=== PATIENT | male | born 1990 | race Caucasian/White ===

== ENCOUNTER 2016-11-04 09:53 | Emergency (ER) | payer OTHER ==
[2016-11-04 10:56] LABS: MEAN CORPUSCULAR HEMOGLOBIN 30.2 pg (27.0-33.0); MEAN CORPUSCULAR HGB CONC 35.3 g/dl (32.0-36.5); MEAN CORPUSCULAR VOLUME 85.4 fl (80.0-96.0); RED CELL DISTRIBUTION WIDTH 11.5 % (11.5-14.5); WHITE BLOOD COUNT 6.4 K/mm3 (4.0-10.0)
[2016-11-04 11:09] LABS: AMPHETAMINES LEVEL URINE NEGATIVE (NEGATIVE); BENZODIAZEPINES URINE NEGATIVE (NEGATIVE)
[2016-11-04 11:10] LABS: COCAINE METABOLITE URINE NEGATIVE (NEGATIVE); CONTROL LINE INT CTR LINE PRESENT; METHADONE URINE NEGATIVE (NEGATIVE); OPIATES URINE NEGATIVE (NEGATIVE); TRICYCLIC ANTIDEPRESS URINE NEGATIVE (NEGATIVE)
[2016-11-04 11:41] LABS: ALBUMIN 4.2 GM/DL (3.2-5.2); ALBUMIN/GLOBULIN RATIO 1.14 (1.00-1.93); ALKALINE PHOSPHATASE 88 U/L (45-117); ALT/SGPT 47 U/L (12-78); ANION GAP 13 MEQ/L (8-16); AST/SGOT 27 U/L (15-37); BILIRUBIN,DIRECT < 0.1 MG/DL (0.0-0.2); BILIRUBIN,TOTAL 0.4 MG/DL (0.2-1.0); BLOOD UREA NITROGEN 12 MG/DL (7-18); CARBON DIOXIDE LEVEL 26 MEQ/L (21-32); CHLORIDE LEVEL 103 MEQ/L (98-107); CREATININE FOR GFR 0.92 MG/DL (0.70-1.30); GLOMERULAR FILTRATION RATE > 60.0 (>60); GLUCOSE, FASTING 85 MG/DL (70-105); POTASSIUM SERUM 3.6 MEQ/L (3.5-5.1); SODIUM LEVEL 142 MEQ/L (136-145); TOTAL PROTEIN 7.9 GM/DL (6.4-8.2)
--- NOTE | 2016-11-04 13:25 | EDDOCDS ---
Nurse's Notes [facility] Name: Lake Nguyen Age: 26 yrs Sex: Male : 1990 Arrival Date: 11/04/2016 Time: 09:53 Bed [facility] Private MD: Diagnosis: Major depressive disorder, recurrent, mild Presentation: 11/04 10:41 Presenting complaint: EMS states: ambulance arrival of pt who has been hallucinating mk4 per staff and states he is not safe. Mental Health Triage Level: Level 2: The patient displays active suicidal ideations. Adult Sepsis Screening: The patient does not have new or worsening altered mentation. Patient's respiratory rate is less than 22. Systolic blood pressure is greater than 100. Patient has a qSOFA score of 0- Negative Sepsis Screen. Suicide/Homicide risk assessment- The patient admits to and/or has been reported to be having suicidal ideations. 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 Transition of care: patient was not received from another setting of care. 10:41 Acuity: LICHA Level 3 mk4 10:41 Method Of Arrival: Ambulance mk4 Triage Assessment: 10:06 General: Appears in no apparent distress, Behavior is anxious. Pain: Denies pain. HIV mk4 screening NA for this visit Offered previously. Historical: - Allergies: BACITRACIN; SULFA (SULFONAMIDES); - Home Meds: 1. Adderall XR 30 mg oral cp24 1 cap once daily (Last dose: 11/03/2016 08:00) 2. Advair Diskus 100-50 mcg/dose Inhl dsdv 1 puff 2 times per day (Last dose: 11/03/2016 08:00) 3. Lexapro 10 mg Oral tab once daily (Last dose: 11/03/2016 08:00) 4. Vitamin D Oral 50,000 unit weekly (Last dose: 10/30/2016) 5. albuterol sulfate 90 mcg/actuation Inhl aepb as needed - PMHx: Anxiety; Asthma; - PSHx: none; - Social history: Smoking status: Patient states was never smoker of tobacco. No barriers to communication noted, The patient speaks fluent Palauan. - Family history: Not pertinent. - : The pt / caregiver states he / she is not on anticoagulants. Home medication list is obtained from the patient. - Exposure Risk Screening:: None identified. Screenin:54 Screening information is obtained from the patient. Fall risk: No risks identified. mk4 Assistance ADL's: requires no assistance with activities of daily living. Abuse/DV Screen: The patient / caregiver reports he/she is: not in a situation that causes fear, pain or injury. Nutritional screening: No deficits noted. Advance Directives: Currently, there is no health care proxy. There is no active DNR order. There is no living will. There is no Power of Mail Clerk. Advance directive information has not previously been placed in an [facility] medical record. Further advance directive information is declined. home support is adequate. Assessment: 10:00 General: Appears in no apparent distress, Behavior is anxious, wringing hands during mk4 triage. Neurological: Level of Consciousness is awake, alert. Respiratory: Airway is patent Respiratory effort is even, Respiratory pattern is regular. 11:00 Reassessment: Patient appears in no apparent distress at this time. Patient denies pain mk4 at this time. pt states he was not hallucinationg this am rather developed double vision while driving which kicked up his anxiety level, denies auditory halluc as well states just his " inner thought" denies s/i and h/i at this time. 12:06 General: Appears in no apparent distress, comfortable, Behavior is cooperative. mk4 12:06 General: Appears in no apparent distress, comfortable. Neurological: Level of mk4 Consciousness is awake, alert. 12:43 General: Appears in no apparent distress, comfortable, Behavior is cooperative, mk4 awaiting dispo. 13:21 General: Appears in no apparent distress, comfortable, Behavior is anxious, mk4 cooperative. Respiratory: Airway is patent Respiratory effort is even, unlabored, Respiratory pattern is regular. Mental Health Eval: 12:44 Mental health consult is initiated at 12:00. 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 [facility] Behavioral Health: The patient is not an established patient of [facility] Behavioral [facility]. Referral Information: Evaluation referral is generated by EMS from [facility] . The patient was referred for evaluation because pt was driving to work and experienced some blurred vision which triggered anxiety. Pt pulled his vehicle over to the side of the road to calm himself down, and reported VH(black objects moving), along with questionable AH. Pt denies SI and HI, denies command AH upon arrival.... Vital Signs: 10:06 BP 132 / 88; Pulse 88; Resp 18; Temp 98; Pulse Ox 98% on R/A; Weight 70.31 kg; Height 5 mk4 ft. 4 in. (162.56 cm); 10:06 Body Mass Index 26.61 (70.31 kg, 162.56 cm) mk4 Vitals: 10:06 Log In Time N/A - ambulance arrival. 4 ED Course: 09:53 Patient visited by Katelyn Yang. mm15 09:53 Patient moved to Waiting mm15 09:55 Lesley Nazario,RN is Primary Nurse. jlf 09:55 Patient moved to [facility] jlf 10:16 Desi Smith MD is Attending Physician. sd1 10:26 Patient visited by Desi Smith MD. sd1 10:42 Triage Initiated mk4 10:48 Patient visited by Amalia Wallace PCA. jlf 10:48 Acetaminophen Level Sent. jlf 10:48 Basic Metabolic Profile Sent. jlf 10:48 Complete Blood Count Sent. jlf 10:48 Drug Eval Toxicology ED Only Sent. jlf 10:48 Ethyl Alcohol (ethanol) Sent. jlf 10:48 Liver Profile Sent. jlf 10:48 Salicylate Level Sent. jlf 10:48 Thyroid Stimulating Hormone Sent. jlf 10:54 The patient / caregiver is instructed regarding the plan of care and ED course. mk4 10:59 Patient visited by Evert Dennis Security Aide. pjf 11:16 Patient visited by Dk Limon. gr2 11:40 Patient visited by Dk Limon. gr2 11:56 Patient visited by Dk Limon. gr2 11:59 [facility] Payment Agreement was scanned into [employer] and attached to record. pm4 12:06 No IV's were initiated during this patient's visit. No procedures done that require [facility] assistance. 12:12 Patient visited by Dk Limon. gr2 12:39 Patient visited by Dk Limon. gr2 12:47 Primary Nurse role handed off by Lesley Nazario,RN mk4 12:56 [facility] is Referral Physician. sd1 13:06 Patient visited by Dk Limon. gr2 13:06 PSA Outpatient Referrals was scanned into [employer] and attached to record. ml4 Order Results: Lab Order: Acetaminophen Level; SPEC'M 11/04/16 10:29 Test: ACETAMINOPHEN LEVEL; Value: < 2.0; Range: 10.0-30.0; Abnormal: Below low normal; Units: UG/ML; Status: F Lab Order: Basic Metabolic Profile; SPEC'M 11/04/16 10:29 Test: GLUCOSE, FASTING; Value: 85; Range: 70-105; Units: MG/DL; Status: F Test: BLOOD UREA NITROGEN; Value: 12; Range: 7-18; Units: MG/DL; Status: F Test: CREATININE FOR GFR; Value: 0.92; Range: 0.70-1.30; Units: MG/DL; Status: F Test: GLOMERULAR FILTRATION RATE; Value: > 60.0; Range: >60; Status: F Test: SODIUM LEVEL; Value: 142; Range: 136-145; Units: MEQ/L; Status: F Test: POTASSIUM SERUM; Value: 3.6; Range: 3.5-5.1; Units: MEQ/L; Status: F Test: CHLORIDE LEVEL; Value: 103; Range: 98-107; Units: MEQ/L; Status: F Test: CARBON DIOXIDE LEVEL; Value: 26; Range: 21-32; Units: MEQ/L; Status: F Test: ANION GAP; Value: 13; Range: 8-16; Units: MEQ/L; Status: F Test: CALCIUM LEVEL; Value: 9.0; Range: 8.5-10.1; Units: MG/DL; Status: F Test Note: ; Units are mL/min/1.73 m2 Chronic Kidney Disease Staging per NKF: Stage I & II GFR >=60 Normal to Mildly Decreased Stage III GFR 30-59 Moderately Decreased Stage IV GFR 15-29 Severely Decreased Stage V GFR <15 Very Little GFR Left ESRD GFR <15 on FUR CLIPPER Lab Order: Complete Blood Count; SPEC'M 11/04/16 10:29 Test: WHITE BLOOD COUNT; Value: 6.4; Range: 4.0-10.0; Units: K/mm3; Status: F Test: RED BLOOD COUNT; Value: 5.00; Range: 4.30-6.10; Units: M/mm3; Status: F Test: HEMOGLOBIN; Value: 15.1; Range: 14.0-18.0; Units: g/dl; Status: F Test: HEMATOCRIT; Value: 42.7; Range: 42.0-52.0; Units: %; Status: F Test: MEAN CORPUSCULAR VOLUME; Value: 85.4; Range: 80.0-96.0; Units: fl; Status: F Test: MEAN CORPUSCULAR HEMOGLOBIN; Value: 30.2; Range: 27.0-33.0; Units: pg; Status: F Test: MEAN CORPUSCULAR HGB CONC; Value: 35.3; Range: 32.0-36.5; Units: g/dl; Status: F Test: RED CELL DISTRIBUTION WIDTH; Value: 11.5; Range: 11.5-14.5; Units: %; Status: F Test: PLATELET COUNT, AUTOMATED; Value: 299; Range: 150-450; Units: k/mm3; Status: F Lab Order: Drug Eval Toxicology ED Only; SPEC'M 11/04/16 10:29 Test: AMPHETAMINES LEVEL URINE; Value: NEGATIVE; Range: NEGATIVE; Status: F Test: BARBITURATES URINE; Value: NEGATIVE; Range: NEGATIVE; Status: F Test: BENZODIAZEPINES URINE; Value: NEGATIVE; Range: NEGATIVE; Status: F Test: CANNABINOIDS URINE; Value: NEGATIVE; Range: NEGATIVE; Status: F Test: COCAINE METABOLITE URINE; Value: NEGATIVE; Range: NEGATIVE; Status: F Test: METHADONE URINE; Value: NEGATIVE; Range: NEGATIVE; Status: F Test: OPIATES URINE; Value: NEGATIVE; Range: NEGATIVE; Status: F Test: TRICYCLIC ANTIDEPRESS URINE; Value: NEGATIVE; Range: NEGATIVE; Status: F Test Note: ; ALL PRESUMPTIVE POSITIVE FINDINGS ARE UNCONFIRMED NORMAL VALUES THRESHOLD IN NG/ML AMPHETAMINES 1000 METHAMPHETAMINES 1000 BARBITURATES 300 BENZODIAZEPINES 300 CANNABINOIDS (THC) 50 COCAINE METABOLITE 300 METHADONE 300 OPIATES 300 PHENCYCLIDINE 25 TRICYCLIC ANTIDEPRESSANTS 1000 RESULTS ARE FOR MEDICAL PURPOSES ONLY. ALL URINE SPECIMENS WILL BE SAVED FOR 3 DAYS. IF CONFIRMATION OF A PRESUMPTIVE POSTIVE SCREEN RESULT IS DESIRED, CALL CHEMISTRY ([phone]) AND REQUEST URINE TO BE SENT TO REFERENCE LAB. FOR A LIST OF CLOSELY RELATED COMPOUNDS PLEASE CALL THE LAB. Lab Order: Ethyl Alcohol (ethanol); SPEC'M 11/04/16 10:29 Test: ETHYL ALCOHOL (ETHANOL); Value: < 0.003; Range: 0.000-0.010; Units: %; Status: F Lab Order: Liver Profile; SPEC' 11/04/16 10:29 Test: AST/SGOT; Value: 27; Range: 15-37; Units: U/L; Status: F Test: ALT/SGPT; Value: 47; Range: 12-78; Units: U/L; Status: F Test: ALKALINE PHOSPHATASE; Value: 88; Range: 45-117; Units: U/L; Status: F Test: BILIRUBIN,TOTAL; Value: 0.4; Range: 0.2-1.0; Units: MG/DL; Status: F Test: BILIRUBIN,DIRECT; Value: < 0.1; Range: 0.0-0.2; Units: MG/DL; Status: F Test: TOTAL PROTEIN; Value: 7.9; Range: 6.4-8.2; Units: GM/DL; Status: F Test: ALBUMIN; Value: 4.2; Range: 3.2-5.2; Units: GM/DL; Status: F Test: ALBUMIN/GLOBULIN RATIO; Value: 1.14; Range: 1.00-1.93; Status: F Lab Order: Salicylate Level; SPEC' 11/04/16 10:29 Test: SALICYLATE LEVEL; Value: < 1.7; Range: 5.0-30.0; Abnormal: Below low normal; Units: MG/DL; Status: F Lab Order: Thyroid Stimulating Hormone; SPEC' 11/04/16 10:29 Test: THYROID STIMULATING HORMONE; Value: 2.150; Range: 0.358-3.740; Units: uIU/ML; Status: F Outcome: 12:56 Discharge ordered by Provider. sd1 13:21 Discharge Assessment: Patient awake, alert and oriented x 3. No cognitive and/or mk4 functional deficits noted. Patient verbalized understanding of disposition instructions. Patient awake and alert. Discharge Assessment: patient administered narcotics - no. The following High Risk Discharge criteria are identified: None. Discharged to home ambulatory. Condition: good Condition: stable. No special radiology studies were completed. Property sent home with patient. 13:25 Patient left the ED. mk4 Signatures: Desi Smith MD MD sd1 Evert Dennis, Security Aide SecrobbipjSheba Cifuentes, PSA PSA ml4 Dk Limon gr2 Katelyn Yang mm15 Erika Lind, RN RN mk4 Amalia Wallace, HEALTH AND HUMAN PERFORMANCE PROFESSOR HEALTH AND HUMAN PERFORMANCE PROFESSOR jlf Evert Patel, Reg Reg pm4 Corrections: (The following items were deleted from the chart) 12:42 10:41 Presenting complaint: EMS states: ambulance arrival of pt who has been mk4 hallucinating per staff and states he is not safe mk4 12:43 11:00 Reassessment: Patient appears in no apparent distress at this time. Patient mk4 denies pain at this time. mk4 MTDD
--- NOTE | 2016-11-04 13:25 | EDDOCDS ---
Physician Documentation [facility] Name: Lake Nguyen Age: 26 yrs Sex: Male : 1990 Arrival Date: 11/04/2016 Time: 09:53 Bed [facility] Private MD: Disposition: 11/04/16 12:56 Discharged to Home/Self Care. Impression: Major depressive disorder, recurrent, mild. - Condition is Stable. - Discharge Instructions: Depression, Adult. - Medication Reconciliation, Local Pharmacy Hours form. - Follow up: [facility]; When: Today. - Problem is chronic. - Symptoms are unchanged. Historical: - Allergies: BACITRACIN; SULFA (SULFONAMIDES); - Home Meds: 1. Adderall XR 30 mg oral cp24 1 cap once daily (Last dose: 11/03/2016 08:00) 2. Advair Diskus 100-50 mcg/dose Inhl dsdv 1 puff 2 times per day (Last dose: 11/03/2016 08:00) 3. Lexapro 10 mg Oral tab once daily (Last dose: 11/03/2016 08:00) 4. Vitamin D Oral 50,000 unit weekly (Last dose: 10/30/2016) 5. albuterol sulfate 90 mcg/actuation Inhl aepb as needed - PMHx: Anxiety; Asthma; - PSHx: none; - Social history: Smoking status: Patient states was never smoker of tobacco. No barriers to communication noted, The patient speaks fluent Irish. - Family history: Not pertinent. - : The pt / caregiver states he / she is not on anticoagulants. Home medication list is obtained from the patient. - Exposure Risk Screening:: None identified. Vital Signs: 11/04 10:06 BP 132 / 88; Pulse 88; Resp 18; Temp 98; Pulse Ox 98% on R/A; Weight 70.31 kg / 155.01 mk4 lbs; Height 5 ft. 4 in. (162.56 cm); 10:06 Body Mass Index 26.61 (70.31 kg, 162.56 cm) mk4 MDM: 09:56 Consult PFS/PSA/Investment Associate ordered. sd1 09:56 Consult PFS/PSA/Investment Associate: Patient's case requires discussion with on-call sd1 Psychiatrist ordered. 09:56 PSA/PFS to call Nursing Plant Technical Specialist, to enter patient data on [place] Safe Act if patient sd1 involuntarily admitted or transferred for SI or HI ordered. 09:56 Confirm accurate psychiatric medication list and times of last dosage ordered. sd1 09:56 Detain Pt Until Medically/PFS Cleared ordered. sd1 09:57 Acetaminophen Level Ordered. EDMS 09:57 Basic Metabolic Profile Ordered. EDMS 09:57 Complete Blood Count Ordered. EDMS 09:57 Drug Eval Toxicology ED Only Ordered. EDMS 09:57 Ethyl Alcohol (ethanol) Ordered. EDMS 09:57 Liver Profile Ordered. EDMS 09:57 Salicylate Level Ordered. EDMS 09:57 Thyroid Stimulating Hormone Ordered. EDMS 10:42 Consult PFS/PSA/Investment Associate complete. mk4 10:42 Consult PFS/PSA/Investment Associate: Patient's case requires discussion with on-call 4 Psychiatrist complete. 10:43 PSA/PFS to call Nursing Plant Technical Specialist, to enter patient data on [place] Safe Act if patient mk4 involuntarily admitted or transferred for SI or HI complete. 11:20 REGULAR DIET PLASTIC GEORGE+DIET ordered. EDMS 11:59 Financial registration complete. pm4 11:59 [facility] Payment Agreement was scanned into [employer] System and attached to record. pm4 12:14 Acetaminophen Level Reviewed. sd1 12:14 Salicylate Level Reviewed. sd1 12:14 Basic Metabolic Profile Reviewed. sd1 12:14 Complete Blood Count Reviewed. sd1 12:14 Drug Eval Toxicology ED Only Reviewed. sd1 12:14 Ethyl Alcohol (ethanol) Reviewed. sd1 12:14 Liver Profile Reviewed. sd1 12:14 Thyroid Stimulating Hormone Reviewed. sd1 13:06 PSA Outpatient Referrals was scanned into [employer] System and attached to record. ml4 Signatures: Dispatcher [employer] EDME Desi Smith MD MD sd1 Sheba Booker, PSA PSA ml4 Erika Lind RN RN mk4 Evert Patel, Reg Reg pm4 The chart was reviewed and I authenticate all verbal orders and agree with the evaluation and treatment provided.Attachments: 11:59 [facility] Payment Agreement pm4 MTDD
--- NOTE | 2016-11-06 14:26 | EDDOCDS ---
Nurse's Notes [facility] Name: Lake Nguyen Age: 26 yrs Sex: Male : 1990 Arrival Date: 11/04/2016 Time: 09:53 Bed [facility] Private MD: Diagnosis: Major depressive disorder, recurrent, mild Presentation: 11/04 10:41 Presenting complaint: EMS states: ambulance arrival of pt who has been hallucinating mk4 per staff and states he is not safe. Mental Health Triage Level: Level 2: The patient displays active suicidal ideations. Adult Sepsis Screening: The patient does not have new or worsening altered mentation. Patient's respiratory rate is less than 22. Systolic blood pressure is greater than 100. Patient has a qSOFA score of 0- Negative Sepsis Screen. Suicide/Homicide risk assessment- The patient admits to and/or has been reported to be having suicidal ideations. 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 Transition of care: patient was not received from another setting of care. 10:41 Acuity: LICHA Level 3 mk4 10:41 Method Of Arrival: Ambulance mk4 Triage Assessment: 10:06 General: Appears in no apparent distress, Behavior is anxious. Pain: Denies pain. HIV mk4 screening NA for this visit Offered previously. Historical: - Allergies: BACITRACIN; SULFA (SULFONAMIDES); - Home Meds: 1. Adderall XR 30 mg oral cp24 1 cap once daily (Last dose: 11/03/2016 08:00) 2. Advair Diskus 100-50 mcg/dose Inhl dsdv 1 puff 2 times per day (Last dose: 11/03/2016 08:00) 3. Lexapro 10 mg Oral tab once daily (Last dose: 11/03/2016 08:00) 4. Vitamin D Oral 50,000 unit weekly (Last dose: 10/30/2016) 5. albuterol sulfate 90 mcg/actuation Inhl aepb as needed - PMHx: Anxiety; Asthma; - PSHx: none; - Social history: Smoking status: Patient states was never smoker of tobacco. No barriers to communication noted, The patient speaks fluent Cook Islander. - Family history: Not pertinent. - : The pt / caregiver states he / she is not on anticoagulants. Home medication list is obtained from the patient. - Exposure Risk Screening:: None identified. Screenin:54 Screening information is obtained from the patient. Fall risk: No risks identified. mk4 Assistance ADL's: requires no assistance with activities of daily living. Abuse/DV Screen: The patient / caregiver reports he/she is: not in a situation that causes fear, pain or injury. Nutritional screening: No deficits noted. Advance Directives: Currently, there is no health care proxy. There is no active DNR order. There is no living will. There is no Power of Case Loader Operator. Advance directive information has not previously been placed in an [facility] medical record. Further advance directive information is declined. home support is adequate. Assessment: 10:00 General: Appears in no apparent distress, Behavior is anxious, wringing hands during mk4 triage. Neurological: Level of Consciousness is awake, alert. Respiratory: Airway is patent Respiratory effort is even, Respiratory pattern is regular. 11:00 Reassessment: Patient appears in no apparent distress at this time. Patient denies pain mk4 at this time. pt states he was not hallucinationg this am rather developed double vision while driving which kicked up his anxiety level, denies auditory halluc as well states just his " inner thought" denies s/i and h/i at this time. 12:06 General: Appears in no apparent distress, comfortable, Behavior is cooperative. mk4 12:06 General: Appears in no apparent distress, comfortable. Neurological: Level of mk4 Consciousness is awake, alert. 12:43 General: Appears in no apparent distress, comfortable, Behavior is cooperative, mk4 awaiting dispo. 13:21 General: Appears in no apparent distress, comfortable, Behavior is anxious, mk4 cooperative. Respiratory: Airway is patent Respiratory effort is even, unlabored, Respiratory pattern is regular. Mental Health Eval: 12:44 Mental health consult is initiated at 12:00. 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 [facility] Behavioral Health: The patient is not an established patient of [facility] Behavioral Health. Referral Information: Evaluation referral is generated by EMS from [facility] . The patient was referred for evaluation because pt was driving to work and experienced some blurred vision which triggered anxiety. Pt pulled his vehicle over to the side of the road to calm himself down, and reported VH(black objects moving), along with questionable AH. Pt denies SI and HI, denies command AH upon arrival.... 13:11 Subjective: The patients chief complaint is pt states, "I never said I was suicidal, I ml4 just pulled my car over because of my anxiety." Admits he was driving to work this morning and states he was "seeing double" that triggered anxiety, states he pulled over and was suffering from VH. VH are described as "black objects that are moving." Admits to , however then states, "I mistakenly confused having auditory hallucinations to my inner voice." He adamantly denies SI, HI, AH. Reports suffering from VH for the past 2 wks. Admits going into [facility] walk-in hours this am due to VH, however was sent to [facility], then referred to [facility]. He continues to deny SI and HI, able to CFS.. Delusions are denied. Patient's mood is anxious, Visual Hallucinations are are reported by pt, "I see black objects moving." Admits suffering from VH for the past 2 wks . Mental Health history: suicide attempt 4 years ago by OD on one bottle of pre-work out pills and Tylenol, but never informed anyone of the attempt. . Mental Health Admissions: None. Current Outpatient Mental Health Services: [facility](Names unknown) . Current living environment is Family / Home Support: Family resides in [facility] The patient currently lives GF. The patient is single. Patient presents to Emergency Department with the following symptoms within the past 2 weeks: anxiety, auditory hallucinations pt, then retracted by stating, "it was my inner voice talking to me." visual hallucinations, stated by patient poor concentration. Substance abuse: Pt denies. Mental status exam: Patients appearance is appropriate, Patient's behavior is cooperative, Speech is normal. Affect is flat. Mood is anxious. Visual Hallucinations are are reported by pt. Appetite is normal. Memory is good. Energy level is normal. Content of thought is normal. Thought process is intact. Cognitive level is oriented to person, place, time and situation Patient's insight is fair. Judgement is fair. Rapport with interviewer is good. Suicidal Ideation is denied. Homicidal ideation is denied. Disposition: Medically cleared for disposition by Desi Smith MD Psychiatric Consult is deferred per ED physician, Dr Mariee . [facility] Admission Criteria: Not Applicable. [place] because the patient does not display any suicidal or homicidal ideations and does not pose a risk to self or others. DSM-V Differential Diagnosis: Unspecified Anxiety Disorder (F41.9). Narrative: Pt is able to be discharged from [facility]. [facility]( Escort) is present to transport pt back to [facility](walk-in hrs) who are aware. Referrals for outpt services was given at bedside. Vital Signs: 10:06 BP 132 / 88; Pulse 88; Resp 18; Temp 98; Pulse Ox 98% on R/A; Weight 70.31 kg; Height 5 [facility] ft. 4 in. (162.56 cm); 10:06 Body Mass Index 26.61 (70.31 kg, 162.56 cm) [facility] Vitals: 10:06 Log In Time N/A - ambulance arrival. 4 ED Course: 09:53 Patient visited by Katelyn Yang. mm15 09:53 Patient moved to [facility]15 09:55 Lesley Nazario,RN is Primary Nurse. f 09:55 Patient moved to [facility] jlf 10:16 Desi Smith MD is Attending Physician. sd1 10:26 Patient visited by Desi Smith MD. sd1 10:42 Triage Initiated mk4 10:48 Patient visited by Amalia Wallace PCA. jlf 10:48 Acetaminophen Level Sent. jlf 10:48 Basic Metabolic Profile Sent. jlf 10:48 Complete Blood Count Sent. jlf 10:48 Drug Eval Toxicology ED Only Sent. jlf 10:48 Ethyl Alcohol (ethanol) Sent. jlf 10:48 Liver Profile Sent. jlf 10:48 Salicylate Level Sent. jlf 10:48 Thyroid Stimulating Hormone Sent. jlf 10:54 The patient / caregiver is instructed regarding the plan of care and ED course. mk4 10:59 Patient visited by Evert Dennis Security Aide. pjf 11:16 Patient visited by Dk Limon. gr2 11:40 Patient visited by Dk Limon. gr2 11:56 Patient visited by Dk Limon. gr2 11:59 [place] [place] Payment Agreement was scanned into [employer] and attached to record. pm4 12:06 No IV's were initiated during this patient's visit. No procedures done that require mk4 assistance. 12:12 Patient visited by Dk Limon. gr2 12:39 Patient visited by Dk Limon. gr2 12:47 Primary Nurse role handed off by Lesley Nazario,RN mk4 12:56 [facility] is Referral Physician. sd1 13:06 Patient visited by Dk Limon. gr2 13:06 PSA Outpatient Referrals was scanned into [employer] and attached to record. ml4 14:30 PCR was scanned into [employer] and attached to record. gb Order Results: Lab Order: Acetaminophen Level; SPEC'M 11/04/16 10:29 Test: ACETAMINOPHEN LEVEL; Value: < 2.0; Range: 10.0-30.0; Abnormal: Below low normal; Units: UG/ML; Status: F Lab Order: Basic Metabolic Profile; SPEC'M 11/04/16 10:29 Test: GLUCOSE, FASTING; Value: 85; Range: 70-105; Units: MG/DL; Status: F Test: BLOOD UREA NITROGEN; Value: 12; Range: 7-18; Units: MG/DL; Status: F Test: CREATININE FOR GFR; Value: 0.92; Range: 0.70-1.30; Units: MG/DL; Status: F Test: GLOMERULAR FILTRATION RATE; Value: > 60.0; Range: >60; Status: F Test: SODIUM LEVEL; Value: 142; Range: 136-145; Units: MEQ/L; Status: F Test: POTASSIUM SERUM; Value: 3.6; Range: 3.5-5.1; Units: MEQ/L; Status: F Test: CHLORIDE LEVEL; Value: 103; Range: 98-107; Units: MEQ/L; Status: F Test: CARBON DIOXIDE LEVEL; Value: 26; Range: 21-32; Units: MEQ/L; Status: F Test: ANION GAP; Value: 13; Range: 8-16; Units: MEQ/L; Status: F Test: CALCIUM LEVEL; Value: 9.0; Range: 8.5-10.1; Units: MG/DL; Status: F Test Note: ; Units are mL/min/1.73 m2 Chronic Kidney Disease Staging per NKF: Stage I & II GFR >=60 Normal to Mildly Decreased Stage III GFR 30-59 Moderately Decreased Stage IV GFR 15-29 Severely Decreased Stage V GFR <15 Very Little GFR Left ESRD GFR <15 on BROADCAST DESIGNER Lab Order: Complete Blood Count; SPEC'M 11/04/16 10:29 Test: WHITE BLOOD COUNT; Value: 6.4; Range: 4.0-10.0; Units: K/mm3; Status: F Test: RED BLOOD COUNT; Value: 5.00; Range: 4.30-6.10; Units: M/mm3; Status: F Test: HEMOGLOBIN; Value: 15.1; Range: 14.0-18.0; Units: g/dl; Status: F Test: HEMATOCRIT; Value: 42.7; Range: 42.0-52.0; Units: %; Status: F Test: MEAN CORPUSCULAR VOLUME; Value: 85.4; Range: 80.0-96.0; Units: fl; Status: F Test: MEAN CORPUSCULAR HEMOGLOBIN; Value: 30.2; Range: 27.0-33.0; Units: pg; Status: F Test: MEAN CORPUSCULAR HGB CONC; Value: 35.3; Range: 32.0-36.5; Units: g/dl; Status: F Test: RED CELL DISTRIBUTION WIDTH; Value: 11.5; Range: 11.5-14.5; Units: %; Status: F Test: PLATELET COUNT, AUTOMATED; Value: 299; Range: 150-450; Units: k/mm3; Status: F Lab Order: Drug Eval Toxicology ED Only; SPEC'M 11/04/16 10:29 Test: AMPHETAMINES LEVEL URINE; Value: NEGATIVE; Range: NEGATIVE; Status: F Test: BARBITURATES URINE; Value: NEGATIVE; Range: NEGATIVE; Status: F Test: BENZODIAZEPINES URINE; Value: NEGATIVE; Range: NEGATIVE; Status: F Test: CANNABINOIDS URINE; Value: NEGATIVE; Range: NEGATIVE; Status: F Test: COCAINE METABOLITE URINE; Value: NEGATIVE; Range: NEGATIVE; Status: F Test: METHADONE URINE; Value: NEGATIVE; Range: NEGATIVE; Status: F Test: OPIATES URINE; Value: NEGATIVE; Range: NEGATIVE; Status: F Test: TRICYCLIC ANTIDEPRESS URINE; Value: NEGATIVE; Range: NEGATIVE; Status: F Test Note: ; ALL PRESUMPTIVE POSITIVE FINDINGS ARE UNCONFIRMED NORMAL VALUES THRESHOLD IN NG/ML AMPHETAMINES 1000 METHAMPHETAMINES 1000 BARBITURATES 300 BENZODIAZEPINES 300 CANNABINOIDS (THC) 50 COCAINE METABOLITE 300 METHADONE 300 OPIATES 300 PHENCYCLIDINE 25 TRICYCLIC ANTIDEPRESSANTS 1000 RESULTS ARE FOR MEDICAL PURPOSES ONLY. ALL URINE SPECIMENS WILL BE SAVED FOR 3 DAYS. IF CONFIRMATION OF A PRESUMPTIVE POSTIVE SCREEN RESULT IS DESIRED, CALL CHEMISTRY ([phone]) AND REQUEST URINE TO BE SENT TO REFERENCE LAB. FOR A LIST OF CLOSELY RELATED COMPOUNDS PLEASE CALL THE LAB. Lab Order: Ethyl Alcohol (ethanol); SPEC 11/04/16 10:29 Test: ETHYL ALCOHOL (ETHANOL); Value: < 0.003; Range: 0.000-0.010; Units: %; Status: F Lab Order: Liver Profile; 11/04/16 10:29 Test: AST/SGOT; Value: 27; Range: 15-37; Units: U/L; Status: F Test: ALT/SGPT; Value: 47; Range: 12-78; Units: U/L; Status: F Test: ALKALINE PHOSPHATASE; Value: 88; Range: 45-117; Units: U/L; Status: F Test: BILIRUBIN,TOTAL; Value: 0.4; Range: 0.2-1.0; Units: MG/DL; Status: F Test: BILIRUBIN,DIRECT; Value: < 0.1; Range: 0.0-0.2; Units: MG/DL; Status: F Test: TOTAL PROTEIN; Value: 7.9; Range: 6.4-8.2; Units: GM/DL; Status: F Test: ALBUMIN; Value: 4.2; Range: 3.2-5.2; Units: GM/DL; Status: F Test: ALBUMIN/GLOBULIN RATIO; Value: 1.14; Range: 1.00-1.93; Status: F Lab Order: Salicylate Level; SPEC11/04/16 10:29 Test: SALICYLATE LEVEL; Value: < 1.7; Range: 5.0-30.0; Abnormal: Below low normal; Units: MG/DL; Status: F Lab Order: Thyroid Stimulating Hormone; SPEC11/04/16 10:29 Test: THYROID STIMULATING HORMONE; Value: 2.150; Range: 0.358-3.740; Units: uIU/ML; Status: F Outcome: 12:56 Discharge ordered by Provider. sd1 13:21 Discharge Assessment: Patient awake, alert and oriented x 3. No cognitive and/or mk4 functional deficits noted. Patient verbalized understanding of disposition instructions. Patient awake and alert. Discharge Assessment: patient administered narcotics - no. The following High Risk Discharge criteria are identified: None. Discharged to home ambulatory. Condition: good Condition: stable. No special radiology studies were completed. Property sent home with patient. 13:25 Patient left the ED. mk4 Signatures: Desi Smith MD MD sd1 Irina Walls, Reg Reg gb Sonny, Evert, Security Aide Securpjf Sheba Booker, PSA PSA ml4 Dk Limon gr2 Katelyn Yang mm15 Erika Lind, RN RN mk4 Amalia Wallace, BARREL FILLER BARREL FILLER jlf Evert Patel, Reg Reg pm4 Corrections: (The following items were deleted from the chart) 12:42 10:41 Presenting complaint: EMS states: ambulance arrival of pt who has been mk4 hallucinating per staff and states he is not safe mk4 12:43 11:00 Reassessment: Patient appears in no apparent distress at this time. Patient mk4 denies pain at this time. mk4 Chart Complete MTDD
--- NOTE | 2016-11-06 14:26 | EDDOCDS ---
Physician Documentation [facility] Name: Lake Nguyen Age: 26 yrs Sex: Male : 1990 Arrival Date: 11/04/2016 Time: 09:53 Bed [facility] Private MD: Disposition: 11/04/16 12:56 Discharged to Home/Self Care. Impression: Major depressive disorder, recurrent, mild. - Condition is Stable. - Discharge Instructions: Depression, Adult. - Medication Reconciliation, Local Pharmacy Hours form. - Follow up: [facility]; When: Today. - Problem is chronic. - Symptoms are unchanged. Historical: - Allergies: BACITRACIN; SULFA (SULFONAMIDES); - Home Meds: 1. Adderall XR 30 mg oral cp24 1 cap once daily (Last dose: 11/03/2016 08:00) 2. Advair Diskus 100-50 mcg/dose Inhl dsdv 1 puff 2 times per day (Last dose: 11/03/2016 08:00) 3. Lexapro 10 mg Oral tab once daily (Last dose: 11/03/2016 08:00) 4. Vitamin D Oral 50,000 unit weekly (Last dose: 10/30/2016) 5. albuterol sulfate 90 mcg/actuation Inhl aepb as needed - PMHx: Anxiety; Asthma; - PSHx: none; - Social history: Smoking status: Patient states was never smoker of tobacco. No barriers to communication noted, The patient speaks fluent Greenlandic. - Family history: Not pertinent. - : The pt / caregiver states he / she is not on anticoagulants. Home medication list is obtained from the patient. - Exposure Risk Screening:: None identified. Vital Signs: 11/04 10:06 BP 132 / 88; Pulse 88; Resp 18; Temp 98; Pulse Ox 98% on R/A; Weight 70.31 kg / 155.01 mk4 lbs; Height 5 ft. 4 in. (162.56 cm); 10:06 Body Mass Index 26.61 (70.31 kg, 162.56 cm) mk4 MDM: 09:56 Consult PFS/PSA/Speech Lang Path ordered. sd1 09:56 Consult PFS/PSA/Speech Lang Path: Patient's case requires discussion with on-call sd1 Psychiatrist ordered. 09:56 PSA/PFS to call Nursing Lodge Officer, to enter [place] data [place] Safe [place] if patient sd1 involuntarily admitted or transferred for SI or HI ordered. 09:56 Confirm accurate psychiatric medication list and times of last dosage ordered. sd1 09:56 Detain Pt Until Medically/PFS Cleared ordered. sd1 09:57 Acetaminophen Level Ordered. EDMS 09:57 Basic Metabolic Profile Ordered. EDMS 09:57 Complete Blood Count Ordered. EDMS 09:57 Drug Eval Toxicology ED Only Ordered. EDMS 09:57 Ethyl Alcohol (ethanol) Ordered. EDMS 09:57 Liver Profile Ordered. EDMS 09:57 Salicylate Level Ordered. EDMS 09:57 Thyroid Stimulating Hormone Ordered. EDMS 10:42 Consult PFS/PSA/Speech Lang Path complete. mk4 10:42 Consult PFS/PSA/Speech Lang Path: Patient's case requires discussion with on-call 4 Psychiatrist complete. 10:43 PSA/PFS to call Nursing Lodge Officer, to [place] if patient mk4 involuntarily admitted or transferred for SI or HI complete. 11:20 REGULAR DIET PLASTIC GEORGE+DIET ordered. EDMS 11:59 Financial registration complete. pm4 11:59 [facility] [place] Agreement was scanned into [employer] and attached to record. pm4 12:14 Acetaminophen Level Reviewed. sd1 12:14 Salicylate Level Reviewed. sd1 12:14 Basic Metabolic Profile Reviewed. sd1 12:14 Complete Blood Count Reviewed. sd1 12:14 Drug Eval Toxicology ED Only Reviewed. sd1 12:14 Ethyl Alcohol (ethanol) Reviewed. sd1 12:14 Liver Profile Reviewed. sd1 12:14 Thyroid Stimulating Hormone Reviewed. sd1 13:06 PSA Outpatient Referrals was scanned into [employer] and attached to record. ml4 14:30 PCR was scanned into [employer] and attached to record. gb Signatures: Dispatcher [employer] EDMS Desi Smith MD MD sd1 Irina Walls, Reg Reg gb Sheba Booker, PSA PSA ml4 Erika Lind RN RN mk4 Evert Patel, Reg Reg pm4 The chart was reviewed and I authenticate all verbal orders and agree with the evaluation and treatment provided.Attachments: 11:59 [facility] [place] Agreement pm4 Chart Complete MTDD
--- NOTE | 2016-11-06 14:26 | EDDOCDS ---
Physician Documentation [facility] Name: Lake Nguyen Age: 26 yrs Sex: Male : 1990 Arrival Date: 11/04/2016 Time: 09:53 Bed [facility] Private MD: Disposition: 11/04/16 12:56 Discharged to Home/Self Care. Impression: Major depressive disorder, recurrent, mild. - Condition is Stable. - Discharge Instructions: Depression, Adult. - Medication Reconciliation, Local Pharmacy Hours form. - Follow up: [facility]; When: Today. - Problem is chronic. - Symptoms are unchanged. Historical: - Allergies: BACITRACIN; SULFA (SULFONAMIDES); - Home Meds: 1. Adderall XR 30 mg oral cp24 1 cap once daily (Last dose: 11/03/2016 08:00) 2. Advair Diskus 100-50 mcg/dose Inhl dsdv 1 puff 2 times per day (Last dose: 11/03/2016 08:00) 3. Lexapro 10 mg Oral tab once daily (Last dose: 11/03/2016 08:00) 4. Vitamin D Oral 50,000 unit weekly (Last dose: 10/30/2016) 5. albuterol sulfate 90 mcg/actuation Inhl aepb as needed - PMHx: Anxiety; Asthma; - PSHx: none; - Social history: Smoking status: Patient states was never smoker of tobacco. No barriers to communication noted, The patient speaks fluent Georgian. - Family history: Not pertinent. - : The pt / caregiver states he / she is not on anticoagulants. Home medication list is obtained from the patient. - Exposure Risk Screening:: None identified. Vital Signs: 11/04 10:06 BP 132 / 88; Pulse 88; Resp 18; Temp 98; Pulse Ox 98% on R/A; Weight 70.31 kg / 155.01 mk4 lbs; Height 5 ft. 4 in. (162.56 cm); 10:06 Body Mass Index 26.61 (70.31 kg, 162.56 cm) mk4 MDM: 09:56 Consult PFS/PSA/Jet Wiper ordered. sd1 09:56 Consult PFS/PSA/Jet Wiper: Patient's case requires discussion with on-call sd1 Psychiatrist ordered. 09:56 PSA/PFS to call Nursing Bicycle Racer, to [place] if patient sd1 involuntarily admitted or transferred for SI or HI ordered. 09:56 Confirm accurate psychiatric medication list and times of last dosage ordered. sd1 09:56 Detain Pt Until Medically/PFS Cleared ordered. sd1 09:57 Acetaminophen Level Ordered. EDMS 09:57 Basic Metabolic Profile Ordered. EDMS 09:57 Complete Blood Count Ordered. EDMS 09:57 Drug Eval Toxicology ED Only Ordered. EDMS 09:57 Ethyl Alcohol (ethanol) Ordered. EDMS 09:57 Liver Profile Ordered. EDMS 09:57 Salicylate Level Ordered. EDMS 09:57 Thyroid Stimulating Hormone Ordered. EDMS 10:42 Consult PFS/PSA/Jet Wiper complete. mk4 10:42 Consult PFS/PSA/Jet Wiper: Patient's case requires discussion with on-call 4 Psychiatrist complete. 10:43 PSA/PFS to call Nursing Bicycle Racer, to [place] if patient mk4 involuntarily admitted or transferred for SI or HI complete. 11:20 REGULAR DIET PLASTIC GEORGE+DIET ordered. EDMS 11:59 Financial registration complete. pm4 11:59 [facility] Payment Agreement was scanned into [employer] and attached to record. pm4 12:14 Acetaminophen Level Reviewed. sd1 12:14 Salicylate Level Reviewed. sd1 12:14 Basic Metabolic Profile Reviewed. sd1 12:14 Complete Blood Count Reviewed. sd1 12:14 Drug Eval Toxicology ED Only Reviewed. sd1 12:14 Ethyl Alcohol (ethanol) Reviewed. sd1 12:14 Liver Profile Reviewed. sd1 12:14 Thyroid Stimulating Hormone Reviewed. sd1 13:06 PSA Outpatient Referrals was scanned into [employer] and attached to record. ml4 14:30 PCR was scanned into [employer] and attached to record. gb Signatures: Dispatcher [employer] EDMS Desi Smith MD MD sd1 Irina Walls, Reg Reg gb Sheba Booker, PSA PSA ml4 Erika Lind RN RN mk4 Evert Patel, Reg Reg pm4 The chart was reviewed and I authenticate all verbal orders and agree with the evaluation and treatment provided.Attachments: 11:59 [facility] Payment Agreement pm4 Chart Complete MTDD
--- NOTE | 2016-11-08 14:55 | EDDOCDS ---
Physician Documentation [facility] Name: Lake Nguyen Age: 26 yrs Sex: Male : 1990 Arrival Date: 11/04/2016 Time: 09:53 Bed [facility] Private MD: Disposition: 11/04/16 12:56 Discharged to Home/Self Care. Impression: Major depressive disorder, recurrent, mild. - Condition is Stable. - Discharge Instructions: Depression, Adult. - Medication Reconciliation, Local Pharmacy Hours form. - Follow up: [facility]; When: Today. - Problem is chronic. - Symptoms are unchanged. Historical: - Allergies: BACITRACIN; SULFA (SULFONAMIDES); - Home Meds: 1. Adderall XR 30 mg oral cp24 1 cap once daily (Last dose: 11/03/2016 08:00) 2. Advair Diskus 100-50 mcg/dose Inhl dsdv 1 puff 2 times per day (Last dose: 11/03/2016 08:00) 3. Lexapro 10 mg Oral tab once daily (Last dose: 11/03/2016 08:00) 4. Vitamin D Oral 50,000 unit weekly (Last dose: 10/30/2016) 5. albuterol sulfate 90 mcg/actuation Inhl aepb as needed - PMHx: Anxiety; Asthma; - PSHx: none; - Social history: Smoking status: Patient states was never smoker of tobacco. No barriers to communication noted, The patient speaks fluent Wolof. - Family history: Not pertinent. - : The pt / caregiver states he / she is not on anticoagulants. Home medication list is obtained from the patient. - Exposure Risk Screening:: None identified. Vital Signs: 11/04 10:06 BP 132 / 88; Pulse 88; Resp 18; Temp 98; Pulse Ox 98% on R/A; Weight 70.31 kg / 155.01 mk4 lbs; Height 5 ft. 4 in. (162.56 cm); 10:06 Body Mass Index 26.61 (70.31 kg, 162.56 cm) mk4 MDM: 09:56 Consult PFS/PSA/Medical Device Sales Representative ordered. sd1 09:56 Consult PFS/PSA/Medical Device Sales Representative: Patient's case requires discussion with on-call sd1 Psychiatrist ordered. 09:56 PSA/PFS to call Nursing Cloth Covered Helmet Puller, to enter [place] data [place] if patient sd1 involuntarily admitted or transferred for SI or HI ordered. 09:56 Confirm accurate psychiatric medication list and times of last dosage ordered. sd1 09:56 Detain Pt Until Medically/PFS Cleared ordered. sd1 09:57 Acetaminophen Level Ordered. EDMS 09:57 Basic Metabolic Profile Ordered. EDMS 09:57 Complete Blood Count Ordered. EDMS 09:57 Drug Eval Toxicology ED Only Ordered. EDMS 09:57 Ethyl Alcohol (ethanol) Ordered. EDMS 09:57 Liver Profile Ordered. EDMS 09:57 Salicylate Level Ordered. EDMS 09:57 Thyroid Stimulating Hormone Ordered. EDMS 10:42 Consult PFS/PSA/Medical Device Sales Representative complete. mk4 10:42 Consult PFS/PSA/Medical Device Sales Representative: Patient's case requires discussion with on-call 4 Psychiatrist complete. 10:43 PSA/PFS to call Nursing Cloth Covered Helmet Puller, to [place] if patient mk4 involuntarily admitted or transferred for SI or HI complete. 11:20 REGULAR DIET PLASTIC GEORGE+DIET ordered. EDMS 11:59 Financial registration complete. pm4 11:59 [facility] Payment Agreement was scanned into [employer] and attached to record. pm4 12:14 Acetaminophen Level Reviewed. sd1 12:14 Salicylate Level Reviewed. sd1 12:14 Basic Metabolic Profile Reviewed. sd1 12:14 Complete Blood Count Reviewed. sd1 12:14 Drug Eval Toxicology ED Only Reviewed. sd1 12:14 Ethyl Alcohol (ethanol) Reviewed. sd1 12:14 Liver Profile Reviewed. sd1 12:14 Thyroid Stimulating Hormone Reviewed. sd1 13:06 PSA Outpatient Referrals was scanned into [employer] and attached to record. ml4 14:30 PCR was scanned into [employer] and attached to record. gb Signatures: Dispatcher [employer] EDMS Desi Smith MD MD sd1 Irina Walls, Reg Reg gb Sheba Booker, PSA PSA ml4 Erika Lind RN RN mk4 Evert Patel, Reg Reg pm4 The chart was reviewed and I authenticate all verbal orders and agree with the evaluation and treatment provided.Attachments: 11:59 [facility] Payment Agreement pm4 Chart Complete MTDD
--- NOTE | 2016-11-08 14:55 | EDDOCDS ---
Physician Documentation [facility] Name: Lake Nguyen Age: 26 yrs Sex: Male : 1990 Arrival Date: 11/04/2016 Time: 09:53 Bed [facility] Private MD: Disposition: 11/04/16 12:56 Discharged to Home/Self Care. Impression: Major depressive disorder, recurrent, mild. - Condition is Stable. - Discharge Instructions: Depression, Adult. - Medication Reconciliation, Local Pharmacy Hours form. - Follow up: [facility]; When: Today. - Problem is chronic. - Symptoms are unchanged. Historical: - Allergies: BACITRACIN; SULFA (SULFONAMIDES); - Home Meds: 1. Adderall XR 30 mg oral cp24 1 cap once daily (Last dose: 11/03/2016 08:00) 2. Advair Diskus 100-50 mcg/dose Inhl dsdv 1 puff 2 times per day (Last dose: 11/03/2016 08:00) 3. Lexapro 10 mg Oral tab once daily (Last dose: 11/03/2016 08:00) 4. Vitamin D Oral 50,000 unit weekly (Last dose: 10/30/2016) 5. albuterol sulfate 90 mcg/actuation Inhl aepb as needed - PMHx: Anxiety; Asthma; - PSHx: none; - Social history: Smoking status: Patient states was never smoker of tobacco. No barriers to communication noted, The patient speaks fluent Malay. - Family history: Not pertinent. - : The pt / caregiver states he / she is not on anticoagulants. Home medication list is obtained from the patient. - Exposure Risk Screening:: None identified. Vital Signs: 11/04 10:06 BP 132 / 88; Pulse 88; Resp 18; Temp 98; Pulse Ox 98% on R/A; Weight 70.31 kg / 155.01 mk4 lbs; Height 5 ft. 4 in. (162.56 cm); 10:06 Body Mass Index 26.61 (70.31 kg, 162.56 cm) mk4 MDM: 09:56 Consult PFS/PSA/Mattress Filler ordered. sd1 09:56 Consult PFS/PSA/Mattress Filler: Patient's case requires discussion with on-call sd1 Psychiatrist ordered. 09:56 PSA/PFS to call Nursing Wet Char Conveyor Tender, to [place] if patient sd1 involuntarily admitted or transferred for SI or HI ordered. 09:56 Confirm accurate psychiatric medication list and times of last dosage ordered. sd1 09:56 Detain Pt Until Medically/PFS Cleared ordered. sd1 09:57 Acetaminophen Level Ordered. EDMS 09:57 Basic Metabolic Profile Ordered. EDMS 09:57 Complete Blood Count Ordered. EDMS 09:57 Drug Eval Toxicology ED Only Ordered. EDMS 09:57 Ethyl Alcohol (ethanol) Ordered. EDMS 09:57 Liver Profile Ordered. EDMS 09:57 Salicylate Level Ordered. EDMS 09:57 Thyroid Stimulating Hormone Ordered. EDMS 10:42 Consult PFS/PSA/Mattress Filler complete. mk4 10:42 Consult PFS/PSA/Mattress Filler: Patient's case requires discussion with on-call 4 Psychiatrist complete. 10:43 PSA/PFS to call Nursing Wet Char Conveyor Tender, to [place] if patient mk4 involuntarily admitted or transferred for SI or HI complete. 11:20 REGULAR DIET PLASTIC GEORGE+DIET ordered. EDMS 11:59 Financial registration complete. pm4 11:59 [facility] Payment Agreement was scanned into [employer] and attached to record. pm4 12:14 Acetaminophen Level Reviewed. sd1 12:14 Salicylate Level Reviewed. sd1 12:14 Basic Metabolic Profile Reviewed. sd1 12:14 Complete Blood Count Reviewed. sd1 12:14 Drug Eval Toxicology ED Only Reviewed. sd1 12:14 Ethyl Alcohol (ethanol) Reviewed. sd1 12:14 Liver Profile Reviewed. sd1 12:14 Thyroid Stimulating Hormone Reviewed. sd1 13:06 PSA Outpatient Referrals was scanned into [employer] and attached to record. ml4 14:30 PCR was scanned into [employer] and attached to record. gb Signatures: Dispatcher [employer] EDMS Desi Smith MD MD sd1 Irina Walls, Reg Reg gb Sheba Booker, PSA PSA ml4 Erika Lind RN RN mk4 Evert Patel, Reg Reg pm4 The chart was reviewed and I authenticate all verbal orders and agree with the evaluation and treatment provided.Attachments: 11:59 [facility] Payment Agreement pm4 Chart Complete MTDD
--- NOTE | 2016-11-08 14:55 | EDDOCDS ---
Nurse's Notes [facility] Name: Lake Nguyen Age: 26 yrs Sex: Male : 1990 Arrival Date: 11/04/2016 Time: 09:53 Bed [facility] Private MD: Diagnosis: Major depressive disorder, recurrent, mild Presentation: 11/04 10:41 Presenting complaint: EMS states: ambulance arrival of pt who has been hallucinating mk4 per staff and states he is not safe. Mental Health Triage Level: Level 2: The patient displays active suicidal ideations. Adult Sepsis Screening: The patient does not have new or worsening altered mentation. Patient's respiratory rate is less than 22. Systolic blood pressure is greater than 100. Patient has a qSOFA score of 0- Negative Sepsis Screen. Suicide/Homicide risk assessment- The patient admits to and/or has been reported to be having suicidal ideations. 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 Transition of care: patient was not received from another setting of care. 10:41 Acuity: LICHA Level 3 mk4 10:41 Method Of Arrival: Ambulance mk4 Triage Assessment: 10:06 General: Appears in no apparent distress, Behavior is anxious. Pain: Denies pain. HIV mk4 screening NA for this visit Offered previously. Historical: - Allergies: BACITRACIN; SULFA (SULFONAMIDES); - Home Meds: 1. Adderall XR 30 mg oral cp24 1 cap once daily (Last dose: 11/03/2016 08:00) 2. Advair Diskus 100-50 mcg/dose Inhl dsdv 1 puff 2 times per day (Last dose: 11/03/2016 08:00) 3. Lexapro 10 mg Oral tab once daily (Last dose: 11/03/2016 08:00) 4. Vitamin D Oral 50,000 unit weekly (Last dose: 10/30/2016) 5. albuterol sulfate 90 mcg/actuation Inhl aepb as needed - PMHx: Anxiety; Asthma; - PSHx: none; - Social history: Smoking status: Patient states was never smoker of tobacco. No barriers to communication noted, The patient speaks fluent Faroese. - Family history: Not pertinent. - : The pt / caregiver states he / she is not on anticoagulants. Home medication list is obtained from the patient. - Exposure Risk Screening:: None identified. Screenin:54 Screening information is obtained from the patient. Fall risk: No risks identified. mk4 Assistance ADL's: requires no assistance with activities of daily living. Abuse/DV Screen: The patient / caregiver reports he/she is: not in a situation that causes fear, pain or injury. Nutritional screening: No deficits noted. Advance Directives: Currently, there is no health care proxy. There is no active DNR order. There is no living will. There is no Power of Circulation Clerk. Advance directive information has not previously been placed in an [facility] medical record. Further advance directive information is declined. home support is adequate. Assessment: 10:00 General: Appears in no apparent distress, Behavior is anxious, wringing hands during mk4 triage. Neurological: Level of Consciousness is awake, alert. Respiratory: Airway is patent Respiratory effort is even, Respiratory pattern is regular. 11:00 Reassessment: Patient appears in no apparent distress at this time. Patient denies pain mk4 at this time. pt states he was not hallucinationg this am rather developed double vision while driving which kicked up his anxiety level, denies auditory halluc as well states just his " inner thought" denies s/i and h/i at this time. 12:06 General: Appears in no apparent distress, comfortable, Behavior is cooperative. mk4 12:06 General: Appears in no apparent distress, comfortable. Neurological: Level of mk4 Consciousness is awake, alert. 12:43 General: Appears in no apparent distress, comfortable, Behavior is cooperative, mk4 awaiting dispo. 13:21 General: Appears in no apparent distress, comfortable, Behavior is anxious, mk4 cooperative. Respiratory: Airway is patent Respiratory effort is even, unlabored, Respiratory pattern is regular. Mental Health Eval: 12:44 Mental health consult is initiated at 12:00. 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 [facility] Behavioral Health: The patient is not an established patient of [facility] Behavioral Health. Referral Information: Evaluation referral is generated by EMS from PSYCHIATRIC . The patient was referred for evaluation because pt was driving to work and experienced some blurred vision which triggered anxiety. Pt pulled his vehicle over to the side of the road to calm himself down, and reported VH(black objects moving), along with questionable AH. Pt denies SI and HI, denies command AH upon arrival.... 13:11 Subjective: The patients chief complaint is pt states, "I never said I was suicidal, I ml4 just pulled my car over because of my anxiety." Admits he was driving to work this morning and states he was "seeing double" that triggered anxiety, states he pulled over and was suffering from VH. VH are described as "black objects that are moving." Admits to , however then states, "I mistakenly confused having auditory hallucinations to my inner voice." He adamantly denies SI, HI, AH. Reports suffering from VH for the past 2 wks. Admits going into [facility] walk-in hours this am due to VH, however was sent to PSYCHIATRIC, then referred to [facility]. He continues to deny SI and HI, able to CFS.. Delusions are denied. Patient's mood is anxious, Visual Hallucinations are are reported by pt, "I see black objects moving." Admits suffering from VH for the past 2 wks . Mental Health history: suicide attempt 4 years ago by OD on one bottle of pre-work out pills and Tylenol, but never informed anyone of the attempt. . Mental Health Admissions: None. Current Outpatient Mental Health Services: [facility](Names unknown) . Current living environment is Family / Home Support: Family resides in [facility] The patient currently lives GF. The patient is single. Patient presents to Emergency Department with the following symptoms within the past 2 weeks: anxiety, auditory hallucinations pt, then retracted by stating, "it was my inner voice talking to me." visual hallucinations, stated by patient poor concentration. Substance abuse: Pt denies. Mental status exam: Patients appearance is appropriate, Patient's behavior is cooperative, Speech is normal. Affect is flat. Mood is anxious. Visual Hallucinations are are reported by pt. Appetite is normal. Memory is good. Energy level is normal. Content of thought is normal. Thought process is intact. Cognitive level is oriented to person, place, time and situation Patient's insight is fair. Judgement is fair. Rapport with interviewer is good. Suicidal Ideation is denied. Homicidal ideation is denied. Disposition: Medically cleared for disposition by Desi Smith MD Psychiatric Consult is deferred per ED physician, Dr Mariee . [facility] Admission Criteria: Not Applicable. [place] because the patient does not display any suicidal or homicidal ideations and does not pose a risk to self or others. DSM-V Differential Diagnosis: Unspecified Anxiety Disorder (F41.9). Narrative: Pt is able to be discharged from [facility]. [facility]quez( Escort) is present to transport pt back to [facility](walk-in hrs) who are aware. Referrals for outpt services was given at bedside. Vital Signs: 10:06 BP 132 / 88; Pulse 88; Resp 18; Temp 98; Pulse Ox 98% on R/A; Weight 70.31 kg; Height 5 [facility] ft. 4 in. (162.56 cm); 10:06 Body Mass Index 26.61 (70.31 kg, 162.56 cm) [facility] Vitals: 10:06 Log In Time N/A - ambulance arrival. 4 ED Course: 09:53 Patient visited by Katelyn Yang. mm15 09:53 Patient moved to [facility]15 09:55 Lesley Nazario,RN is Primary Nurse. f 09:55 Patient moved to [facility] jlf 10:16 Desi Smith MD is Attending Physician. sd1 10:26 Patient visited by Desi Smith MD. sd1 10:42 Triage Initiated mk4 10:48 Patient visited by Amalia Wallace PCA. jlf 10:48 Acetaminophen Level Sent. jlf 10:48 Basic Metabolic Profile Sent. jlf 10:48 Complete Blood Count Sent. jlf 10:48 Drug Eval Toxicology ED Only Sent. jlf 10:48 Ethyl Alcohol (ethanol) Sent. jlf 10:48 Liver Profile Sent. jlf 10:48 Salicylate Level Sent. jlf 10:48 Thyroid Stimulating Hormone Sent. jlf 10:54 The patient / caregiver is instructed regarding the plan of care and ED course. mk4 10:59 Patient visited by Evert Dennis Security Aide. pjf 11:16 Patient visited by Dk Limon. gr2 11:40 Patient visited by Dk Limon. gr2 11:56 Patient visited by Dk Limon. gr2 11:59 [facility] Payment Agreement was scanned into [employer]Search and attached to record. pm4 12:06 No IV's were initiated during this patient's visit. No procedures done that require mk4 assistance. 12:12 Patient visited by Dk Limon. gr2 12:39 Patient visited by Dk Limon. gr2 12:47 Primary Nurse role handed off by Lesley Nazario,RN mk4 12:56 [facility] is Referral Physician. sd1 13:06 Patient visited by kD Limon. gr2 13:06 PSA Outpatient Referrals was scanned into [employer]Search and attached to record. ml4 14:30 PCR was scanned into [employer] and attached to record. gb Order Results: Lab Order: Acetaminophen Level; SPEC'M 11/04/16 10:29 Test: ACETAMINOPHEN LEVEL; Value: < 2.0; Range: 10.0-30.0; Abnormal: Below low normal; Units: UG/ML; Status: F Lab Order: Basic Metabolic Profile; SPEC'M 11/04/16 10:29 Test: GLUCOSE, FASTING; Value: 85; Range: 70-105; Units: MG/DL; Status: F Test: BLOOD UREA NITROGEN; Value: 12; Range: 7-18; Units: MG/DL; Status: F Test: CREATININE FOR GFR; Value: 0.92; Range: 0.70-1.30; Units: MG/DL; Status: F Test: GLOMERULAR FILTRATION RATE; Value: > 60.0; Range: >60; Status: F Test: SODIUM LEVEL; Value: 142; Range: 136-145; Units: MEQ/L; Status: F Test: POTASSIUM SERUM; Value: 3.6; Range: 3.5-5.1; Units: MEQ/L; Status: F Test: CHLORIDE LEVEL; Value: 103; Range: 98-107; Units: MEQ/L; Status: F Test: CARBON DIOXIDE LEVEL; Value: 26; Range: 21-32; Units: MEQ/L; Status: F Test: ANION GAP; Value: 13; Range: 8-16; Units: MEQ/L; Status: F Test: CALCIUM LEVEL; Value: 9.0; Range: 8.5-10.1; Units: MG/DL; Status: F Test Note: ; Units are mL/min/1.73 m2 Chronic Kidney Disease Staging per NKF: Stage I & II GFR >=60 Normal to Mildly Decreased Stage III GFR 30-59 Moderately Decreased Stage IV GFR 15-29 Severely Decreased Stage V GFR <15 Very Little GFR Left ESRD GFR <15 on [employer] Lab Order: Complete Blood Count; SPEC'M 11/04/16 10:29 Test: WHITE BLOOD COUNT; Value: 6.4; Range: 4.0-10.0; Units: K/mm3; Status: F Test: RED BLOOD COUNT; Value: 5.00; Range: 4.30-6.10; Units: M/mm3; Status: F Test: HEMOGLOBIN; Value: 15.1; Range: 14.0-18.0; Units: g/dl; Status: F Test: HEMATOCRIT; Value: 42.7; Range: 42.0-52.0; Units: %; Status: F Test: MEAN CORPUSCULAR VOLUME; Value: 85.4; Range: 80.0-96.0; Units: fl; Status: F Test: MEAN CORPUSCULAR HEMOGLOBIN; Value: 30.2; Range: 27.0-33.0; Units: pg; Status: F Test: MEAN CORPUSCULAR HGB CONC; Value: 35.3; Range: 32.0-36.5; Units: g/dl; Status: F Test: RED CELL DISTRIBUTION WIDTH; Value: 11.5; Range: 11.5-14.5; Units: %; Status: F Test: PLATELET COUNT, AUTOMATED; Value: 299; Range: 150-450; Units: k/mm3; Status: F Lab Order: Drug Eval Toxicology ED Only; SPEC'M 11/04/16 10:29 Test: AMPHETAMINES LEVEL URINE; Value: NEGATIVE; Range: NEGATIVE; Status: F Test: BARBITURATES URINE; Value: NEGATIVE; Range: NEGATIVE; Status: F Test: BENZODIAZEPINES URINE; Value: NEGATIVE; Range: NEGATIVE; Status: F Test: CANNABINOIDS URINE; Value: NEGATIVE; Range: NEGATIVE; Status: F Test: COCAINE METABOLITE URINE; Value: NEGATIVE; Range: NEGATIVE; Status: F Test: METHADONE URINE; Value: NEGATIVE; Range: NEGATIVE; Status: F Test: OPIATES URINE; Value: NEGATIVE; Range: NEGATIVE; Status: F Test: TRICYCLIC ANTIDEPRESS URINE; Value: NEGATIVE; Range: NEGATIVE; Status: F Test Note: ; ALL PRESUMPTIVE POSITIVE FINDINGS ARE UNCONFIRMED NORMAL VALUES THRESHOLD IN NG/ML AMPHETAMINES 1000 METHAMPHETAMINES 1000 BARBITURATES 300 BENZODIAZEPINES 300 CANNABINOIDS (THC) 50 COCAINE METABOLITE 300 METHADONE 300 OPIATES 300 PHENCYCLIDINE 25 TRICYCLIC ANTIDEPRESSANTS 1000 RESULTS ARE FOR MEDICAL PURPOSES ONLY. ALL URINE SPECIMENS WILL BE SAVED FOR 3 DAYS. IF CONFIRMATION OF A PRESUMPTIVE POSTIVE SCREEN RESULT IS DESIRED, CALL CHEMISTRY ([phone]) AND REQUEST URINE TO BE SENT TO REFERENCE LAB. FOR A LIST OF CLOSELY RELATED COMPOUNDS PLEASE CALL THE LAB. Lab Order: Ethyl Alcohol (ethanol); SPEC 11/04/16 10:29 Test: ETHYL ALCOHOL (ETHANOL); Value: < 0.003; Range: 0.000-0.010; Units: %; Status: F Lab Order: Liver Profile; 11/04/16 10:29 Test: AST/SGOT; Value: 27; Range: 15-37; Units: U/L; Status: F Test: ALT/SGPT; Value: 47; Range: 12-78; Units: U/L; Status: F Test: ALKALINE PHOSPHATASE; Value: 88; Range: 45-117; Units: U/L; Status: F Test: BILIRUBIN,TOTAL; Value: 0.4; Range: 0.2-1.0; Units: MG/DL; Status: F Test: BILIRUBIN,DIRECT; Value: < 0.1; Range: 0.0-0.2; Units: MG/DL; Status: F Test: TOTAL PROTEIN; Value: 7.9; Range: 6.4-8.2; Units: GM/DL; Status: F Test: ALBUMIN; Value: 4.2; Range: 3.2-5.2; Units: GM/DL; Status: F Test: ALBUMIN/GLOBULIN RATIO; Value: 1.14; Range: 1.00-1.93; Status: F Lab Order: Salicylate Level; SPEC11/04/16 10:29 Test: SALICYLATE LEVEL; Value: < 1.7; Range: 5.0-30.0; Abnormal: Below low normal; Units: MG/DL; Status: F Lab Order: Thyroid Stimulating Hormone; SPEC11/04/16 10:29 Test: THYROID STIMULATING HORMONE; Value: 2.150; Range: 0.358-3.740; Units: uIU/ML; Status: F Outcome: 12:56 Discharge ordered by Provider. sd1 13:21 Discharge Assessment: Patient awake, alert and oriented x 3. No cognitive and/or mk4 functional deficits noted. Patient verbalized understanding of disposition instructions. Patient awake and alert. Discharge Assessment: patient administered narcotics - no. The following High Risk Discharge criteria are identified: None. Discharged to home ambulatory. Condition: good Condition: stable. No special radiology studies were completed. Property sent home with patient. 13:25 Patient left the ED. mk4 Signatures: Desi Smith MD MD sd1 Irina Walls, Reg Reg gb Sonny, Evert, Security Aide Securpjf Sheba Booker, PSA PSA ml4 Dk iLmon gr2 Katelyn Yang mm15 Erika Lind, RN RN mk4 Amalia Wallace, ENGRAVER PANTOGRAPH ENGRAVER PANTOGRAPH jlf Evert Patel, Reg Reg pm4 Corrections: (The following items were deleted from the chart) 12:42 10:41 Presenting complaint: EMS states: ambulance arrival of pt who has been mk4 hallucinating per staff and states he is not safe mk4 12:43 11:00 Reassessment: Patient appears in no apparent distress at this time. Patient mk4 denies pain at this time. mk4 Chart Complete MTDD
--- NOTE | 2016-11-11 10:39 | EDDOCDS ---
Physician Documentation [facility] Name: Lake Nguyen Age: 26 yrs Sex: Male : 1990 Arrival Date: 11/04/2016 Time: 09:53 Bed [facility] Private MD: Disposition: 11/04/16 12:56 Discharged to Home/Self Care. Impression: Major depressive disorder, recurrent, mild. - Condition is Stable. - Discharge Instructions: Depression, Adult. - Medication Reconciliation, Local Pharmacy Hours form. - Follow up: [facility]; When: Today. - Problem is chronic. - Symptoms are unchanged. Historical: - Allergies: BACITRACIN; SULFA (SULFONAMIDES); - Home Meds: 1. Adderall XR 30 mg oral cp24 1 cap once daily (Last dose: 11/03/2016 08:00) 2. Advair Diskus 100-50 mcg/dose Inhl dsdv 1 puff 2 times per day (Last dose: 11/03/2016 08:00) 3. Lexapro 10 mg Oral tab once daily (Last dose: 11/03/2016 08:00) 4. Vitamin D Oral 50,000 unit weekly (Last dose: 10/30/2016) 5. albuterol sulfate 90 mcg/actuation Inhl aepb as needed - PMHx: Anxiety; Asthma; - PSHx: none; - Social history: Smoking status: Patient states was never smoker of tobacco. No barriers to communication noted, The patient speaks fluent Uzbek. - Family history: Not pertinent. - : The pt / caregiver states he / she is not on anticoagulants. Home medication list is obtained from the patient. - Exposure Risk Screening:: None identified. Vital Signs: 11/04 10:06 BP 132 / 88; Pulse 88; Resp 18; Temp 98; Pulse Ox 98% on R/A; Weight 70.31 kg / 155.01 mk4 lbs; Height 5 ft. 4 in. (162.56 cm); 10:06 Body Mass Index 26.61 (70.31 kg, 162.56 cm) mk4 MDM: 09:56 Consult PFS/PSA/Clinical Lab Specialist ordered. sd1 09:56 Consult PFS/PSA/Clinical Lab Specialist: Patient's case requires discussion with on-call sd1 Psychiatrist ordered. 09:56 PSA/PFS to call Nursing Plant Hr Manager, to [place] if patient sd1 involuntarily admitted or transferred for SI or HI ordered. 09:56 Confirm accurate psychiatric medication list and times of last dosage ordered. sd1 09:56 Detain Pt Until Medically/PFS Cleared ordered. sd1 09:57 Acetaminophen Level Ordered. EDMS 09:57 Basic Metabolic Profile Ordered. EDMS 09:57 Complete Blood Count Ordered. EDMS 09:57 Drug Eval Toxicology ED Only Ordered. EDMS 09:57 Ethyl Alcohol (ethanol) Ordered. EDMS 09:57 Liver Profile Ordered. EDMS 09:57 Salicylate Level Ordered. EDMS 09:57 Thyroid Stimulating Hormone Ordered. EDMS 10:42 Consult PFS/PSA/Clinical Lab Specialist complete. mk4 10:42 Consult PFS/PSA/Clinical Lab Specialist: Patient's case requires discussion with on-call 4 Psychiatrist complete. 10:43 PSA/PFS to call Nursing Plant Hr Manager, to [place] if patient mk4 involuntarily admitted or transferred for SI or HI complete. 11:20 REGULAR DIET PLASTIC GEORGE+DIET ordered. EDMS 11:59 Financial registration complete. pm4 11:59 [facility] Payment Agreement was scanned into zePASS and attached to record. pm4 12:14 Acetaminophen Level Reviewed. sd1 12:14 Salicylate Level Reviewed. sd1 12:14 Basic Metabolic Profile Reviewed. sd1 12:14 Complete Blood Count Reviewed. sd1 12:14 Drug Eval Toxicology ED Only Reviewed. sd1 12:14 Ethyl Alcohol (ethanol) Reviewed. sd1 12:14 Liver Profile Reviewed. sd1 12:14 Thyroid Stimulating Hormone Reviewed. sd1 13:06 PSA Outpatient Referrals was scanned into zePASS and attached to record. ml4 14:30 PCR was scanned into zePASS and attached to record. gb Signatures: Dispatcher MedHost EDMS Desi Smith MD MD sd1 Irina Walls, Reg Reg gb Sheba Booker, PSA PSA ml4 Erika Lind RN RN mk4 Evert Patel, Reg Reg pm4 The chart was reviewed and I authenticate all verbal orders and agree with the evaluation and treatment provided.Attachments: 11:59 [facility] [place] Payment Agreement pm4 Chart Complete MTDD
--- NOTE | 2016-11-11 10:39 | EDDOCDS ---
Nurse's Notes [facility] Name: Lake Nguyen Age: 26 yrs Sex: Male : 1990 Arrival Date: 11/04/2016 Time: 09:53 Bed [facility] Private MD: Diagnosis: Major depressive disorder, recurrent, mild Presentation: 11/04 10:41 Presenting complaint: EMS states: ambulance arrival of pt who has been hallucinating mk4 per staff and states he is not safe. Mental Health Triage Level: Level 2: The patient displays active suicidal ideations. Adult Sepsis Screening: The patient does not have new or worsening altered mentation. Patient's respiratory rate is less than 22. Systolic blood pressure is greater than 100. Patient has a qSOFA score of 0- Negative Sepsis Screen. Suicide/Homicide risk assessment- The patient admits to and/or has been reported to be having suicidal ideations. 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 Transition of care: patient was not received from another setting of care. 10:41 Acuity: LICHA Level 3 mk4 10:41 Method Of Arrival: Ambulance mk4 Triage Assessment: 10:06 General: Appears in no apparent distress, Behavior is anxious. Pain: Denies pain. HIV mk4 screening NA for this visit Offered previously. Historical: - Allergies: BACITRACIN; SULFA (SULFONAMIDES); - Home Meds: 1. Adderall XR 30 mg oral cp24 1 cap once daily (Last dose: 11/03/2016 08:00) 2. Advair Diskus 100-50 mcg/dose Inhl dsdv 1 puff 2 times per day (Last dose: 11/03/2016 08:00) 3. Lexapro 10 mg Oral tab once daily (Last dose: 11/03/2016 08:00) 4. Vitamin D Oral 50,000 unit weekly (Last dose: 10/30/2016) 5. albuterol sulfate 90 mcg/actuation Inhl aepb as needed - PMHx: Anxiety; Asthma; - PSHx: none; - Social history: Smoking status: Patient states was never smoker of tobacco. No barriers to communication noted, The patient speaks fluent Israeli. - Family history: Not pertinent. - : The pt / caregiver states he / she is not on anticoagulants. Home medication list is obtained from the patient. - Exposure Risk Screening:: None identified. Screenin:54 Screening information is obtained from the patient. Fall risk: No risks identified. mk4 Assistance ADL's: requires no assistance with activities of daily living. Abuse/DV Screen: The patient / caregiver reports he/she is: not in a situation that causes fear, pain or injury. Nutritional screening: No deficits noted. Advance Directives: Currently, there is no health care proxy. There is no active DNR order. There is no living will. There is no Power of Scale Tester. Advance directive information has not previously been placed in an [facility] medical record. Further advance directive information is declined. home support is adequate. Assessment: 10:00 General: Appears in no apparent distress, Behavior is anxious, wringing hands during mk4 triage. Neurological: Level of Consciousness is awake, alert. Respiratory: Airway is patent Respiratory effort is even, Respiratory pattern is regular. 11:00 Reassessment: Patient appears in no apparent distress at this time. Patient denies pain mk4 at this time. pt states he was not hallucinationg this am rather developed double vision while driving which kicked up his anxiety level, denies auditory halluc as well states just his " inner thought" denies s/i and h/i at this time. 12:06 General: Appears in no apparent distress, comfortable, Behavior is cooperative. mk4 12:06 General: Appears in no apparent distress, comfortable. Neurological: Level of mk4 Consciousness is awake, alert. 12:43 General: Appears in no apparent distress, comfortable, Behavior is cooperative, mk4 awaiting dispo. 13:21 General: Appears in no apparent distress, comfortable, Behavior is anxious, mk4 cooperative. Respiratory: Airway is patent Respiratory effort is even, unlabored, Respiratory pattern is regular. Mental Health Eval: 12:44 Mental health consult is initiated at 12:00. 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 [facility] Behavioral Health: The patient is not an established patient of [facility] Behavioral Health. Referral Information: Evaluation referral is generated by EMS from [facility] . The patient was referred for evaluation because pt was driving to work and experienced some blurred vision which triggered anxiety. Pt pulled his vehicle over to the side of the road to calm himself down, and reported VH(black objects moving), along with questionable AH. Pt denies SI and HI, denies command AH upon arrival.... 13:11 Subjective: The patients chief complaint is pt states, "I never said I was suicidal, I ml4 just pulled my car over because of my anxiety." Admits he was driving to work this morning and states he was "seeing double" that triggered anxiety, states he pulled over and was suffering from VH. VH are described as "black objects that are moving." Admits to , however then states, "I mistakenly confused having auditory hallucinations to my inner voice." He adamantly denies SI, HI, AH. Reports suffering from VH for the past 2 wks. Admits going into [facility] walk-in hours this am due to VH, however was sent to [facility], then referred to [facility]. He continues to deny SI and HI, able to CFS.. Delusions are denied. Patient's mood is anxious, Visual Hallucinations are are reported by pt, "I see black objects moving." Admits suffering from VH for the past 2 wks . Mental Health history: suicide attempt 4 years ago by OD on one bottle of pre-work out pills and Tylenol, but never informed anyone of the attempt. . Mental Health Admissions: None. Current Outpatient Mental Health Services: [facility](Names unknown) . Current living environment is Family / Home Support: Family resides in [facility] The patient currently lives GF. The patient is single. Patient presents to Emergency Department with the following symptoms within the past 2 weeks: anxiety, auditory hallucinations pt, then retracted by stating, "it was my inner voice talking to me." visual hallucinations, stated by patient poor concentration. Substance abuse: Pt denies. Mental status exam: Patients appearance is appropriate, Patient's behavior is cooperative, Speech is normal. Affect is flat. Mood is anxious. Visual Hallucinations are are reported by pt. Appetite is normal. Memory is good. Energy level is normal. Content of thought is normal. Thought process is intact. Cognitive level is oriented to person, place, time and situation Patient's insight is fair. Judgement is fair. Rapport with interviewer is good. Suicidal Ideation is denied. Homicidal ideation is denied. Disposition: Medically cleared for disposition by Desi Smith MD Psychiatric Consult is deferred per ED physician, Dr Mariee . [facility] Admission Criteria: Not Applicable. [place] because the patient does not display any suicidal or homicidal ideations and does not pose a risk to self or others. DSM-V Differential Diagnosis: Unspecified Anxiety Disorder (F41.9). Narrative: Pt is able to be discharged from [facility]. Marquez( Escort) is present to transport pt back to [facility](walk-in hrs) who are aware. Referrals for outpt services was given at bedside. Vital Signs: 10:06 BP 132 / 88; Pulse 88; Resp 18; Temp 98; Pulse Ox 98% on R/A; Weight 70.31 kg; Height 5 [facility] ft. 4 in. (162.56 cm); 10:06 Body Mass Index 26.61 (70.31 kg, 162.56 cm) [facility] Vitals: 10:06 Log In Time N/A - ambulance arrival. 4 ED Course: 09:53 Patient visited by Katelyn Yang. mm15 09:53 Patient moved to [facility]15 09:55 Lesley Nazario,RN is Primary Nurse. f 09:55 Patient moved to [facility] jlf 10:16 Desi Smith MD is Attending Physician. sd1 10:26 Patient visited by Desi Smith MD. sd1 10:42 Triage Initiated mk4 10:48 Patient visited by Amalia Wallace PCA. jlf 10:48 Acetaminophen Level Sent. jlf 10:48 Basic Metabolic Profile Sent. jlf 10:48 Complete Blood Count Sent. jlf 10:48 Drug Eval Toxicology ED Only Sent. jlf 10:48 Ethyl Alcohol (ethanol) Sent. jlf 10:48 Liver Profile Sent. jlf 10:48 Salicylate Level Sent. jlf 10:48 Thyroid Stimulating Hormone Sent. jlf 10:54 The patient / caregiver is instructed regarding the plan of care and ED course. mk4 10:59 Patient visited by Evert Dennis Security Aide. pjf 11:16 Patient visited by Dk Limon. gr2 11:40 Patient visited by Dk Limon. gr2 11:56 Patient visited by Dk Limon. gr2 11:59 [facility] Payment Agreement was scanned into Memoright and attached to record. pm4 12:06 No IV's were initiated during this patient's visit. No procedures done that require mk4 assistance. 12:12 Patient visited by Dk Limon. gr2 12:39 Patient visited by Dk Limon. gr2 12:47 Primary Nurse role handed off by Lesley Nazario,RN mk4 12:56 [facility] is Referral Physician. sd1 13:06 Patient visited by Dk Limon. gr2 13:06 PSA Outpatient Referrals was scanned into Memoright and attached to record. ml4 14:30 PCR was scanned into Memoright and attached to record. gb Order Results: Lab Order: Acetaminophen Level; SPEC'M 11/04/16 10:29 Test: ACETAMINOPHEN LEVEL; Value: < 2.0; Range: 10.0-30.0; Abnormal: Below low normal; Units: UG/ML; Status: F Lab Order: Basic Metabolic Profile; SPEC'M 11/04/16 10:29 Test: GLUCOSE, FASTING; Value: 85; Range: 70-105; Units: MG/DL; Status: F Test: BLOOD UREA NITROGEN; Value: 12; Range: 7-18; Units: MG/DL; Status: F Test: CREATININE FOR GFR; Value: 0.92; Range: 0.70-1.30; Units: MG/DL; Status: F Test: GLOMERULAR FILTRATION RATE; Value: > 60.0; Range: >60; Status: F Test: SODIUM LEVEL; Value: 142; Range: 136-145; Units: MEQ/L; Status: F Test: POTASSIUM SERUM; Value: 3.6; Range: 3.5-5.1; Units: MEQ/L; Status: F Test: CHLORIDE LEVEL; Value: 103; Range: 98-107; Units: MEQ/L; Status: F Test: CARBON DIOXIDE LEVEL; Value: 26; Range: 21-32; Units: MEQ/L; Status: F Test: ANION GAP; Value: 13; Range: 8-16; Units: MEQ/L; Status: F Test: CALCIUM LEVEL; Value: 9.0; Range: 8.5-10.1; Units: MG/DL; Status: F Test Note: ; Units are mL/min/1.73 m2 Chronic Kidney Disease Staging per NKF: Stage I & II GFR >=60 Normal to Mildly Decreased Stage III GFR 30-59 Moderately Decreased Stage IV GFR 15-29 Severely Decreased Stage V GFR <15 Very Little GFR Left ESRD GFR <15 on LEGAL INSTRUMENTS EXAMINER Lab Order: Complete Blood Count; SPEC'M 11/04/16 10:29 Test: WHITE BLOOD COUNT; Value: 6.4; Range: 4.0-10.0; Units: K/mm3; Status: F Test: RED BLOOD COUNT; Value: 5.00; Range: 4.30-6.10; Units: M/mm3; Status: F Test: HEMOGLOBIN; Value: 15.1; Range: 14.0-18.0; Units: g/dl; Status: F Test: HEMATOCRIT; Value: 42.7; Range: 42.0-52.0; Units: %; Status: F Test: MEAN CORPUSCULAR VOLUME; Value: 85.4; Range: 80.0-96.0; Units: fl; Status: F Test: MEAN CORPUSCULAR HEMOGLOBIN; Value: 30.2; Range: 27.0-33.0; Units: pg; Status: F Test: MEAN CORPUSCULAR HGB CONC; Value: 35.3; Range: 32.0-36.5; Units: g/dl; Status: F Test: RED CELL DISTRIBUTION WIDTH; Value: 11.5; Range: 11.5-14.5; Units: %; Status: F Test: PLATELET COUNT, AUTOMATED; Value: 299; Range: 150-450; Units: k/mm3; Status: F Lab Order: Drug Eval Toxicology ED Only; SPEC'M 11/04/16 10:29 Test: AMPHETAMINES LEVEL URINE; Value: NEGATIVE; Range: NEGATIVE; Status: F Test: BARBITURATES URINE; Value: NEGATIVE; Range: NEGATIVE; Status: F Test: BENZODIAZEPINES URINE; Value: NEGATIVE; Range: NEGATIVE; Status: F Test: CANNABINOIDS URINE; Value: NEGATIVE; Range: NEGATIVE; Status: F Test: COCAINE METABOLITE URINE; Value: NEGATIVE; Range: NEGATIVE; Status: F Test: METHADONE URINE; Value: NEGATIVE; Range: NEGATIVE; Status: F Test: OPIATES URINE; Value: NEGATIVE; Range: NEGATIVE; Status: F Test: TRICYCLIC ANTIDEPRESS URINE; Value: NEGATIVE; Range: NEGATIVE; Status: F Test Note: ; ALL PRESUMPTIVE POSITIVE FINDINGS ARE UNCONFIRMED NORMAL VALUES THRESHOLD IN NG/ML AMPHETAMINES 1000 METHAMPHETAMINES 1000 BARBITURATES 300 BENZODIAZEPINES 300 CANNABINOIDS (THC) 50 COCAINE METABOLITE 300 METHADONE 300 OPIATES 300 PHENCYCLIDINE 25 TRICYCLIC ANTIDEPRESSANTS 1000 RESULTS ARE FOR MEDICAL PURPOSES ONLY. ALL URINE SPECIMENS WILL BE SAVED FOR 3 DAYS. IF CONFIRMATION OF A PRESUMPTIVE POSTIVE SCREEN RESULT IS DESIRED, CALL CHEMISTRY ([phone]) AND REQUEST URINE TO BE SENT TO REFERENCE LAB. FOR A LIST OF CLOSELY RELATED COMPOUNDS PLEASE CALL THE LAB. Lab Order: Ethyl Alcohol (ethanol); SPEC 11/04/16 10:29 Test: ETHYL ALCOHOL (ETHANOL); Value: < 0.003; Range: 0.000-0.010; Units: %; Status: F Lab Order: Liver Profile; 11/04/16 10:29 Test: AST/SGOT; Value: 27; Range: 15-37; Units: U/L; Status: F Test: ALT/SGPT; Value: 47; Range: 12-78; Units: U/L; Status: F Test: ALKALINE PHOSPHATASE; Value: 88; Range: 45-117; Units: U/L; Status: F Test: BILIRUBIN,TOTAL; Value: 0.4; Range: 0.2-1.0; Units: MG/DL; Status: F Test: BILIRUBIN,DIRECT; Value: < 0.1; Range: 0.0-0.2; Units: MG/DL; Status: F Test: TOTAL PROTEIN; Value: 7.9; Range: 6.4-8.2; Units: GM/DL; Status: F Test: ALBUMIN; Value: 4.2; Range: 3.2-5.2; Units: GM/DL; Status: F Test: ALBUMIN/GLOBULIN RATIO; Value: 1.14; Range: 1.00-1.93; Status: F Lab Order: Salicylate Level; SPEC11/04/16 10:29 Test: SALICYLATE LEVEL; Value: < 1.7; Range: 5.0-30.0; Abnormal: Below low normal; Units: MG/DL; Status: F Lab Order: Thyroid Stimulating Hormone; SPEC11/04/16 10:29 Test: THYROID STIMULATING HORMONE; Value: 2.150; Range: 0.358-3.740; Units: uIU/ML; Status: F Outcome: 12:56 Discharge ordered by Provider. sd1 13:21 Discharge Assessment: Patient awake, alert and oriented x 3. No cognitive and/or mk4 functional deficits noted. Patient verbalized understanding of disposition instructions. Patient awake and alert. Discharge Assessment: patient administered narcotics - no. The following High Risk Discharge criteria are identified: None. Discharged to home ambulatory. Condition: good Condition: stable. No special radiology studies were completed. Property sent home with patient. 13:25 Patient left the ED. mk4 Signatures: Desi Smith MD MD sd1 Irina Walls, Reg Reg gb Sonny, Evert, Security Aide Securpjf Sheba Booker, PSA PSA ml4 Dk Limon gr2 Katelyn Yang mm15 Erika Lind, RN RN mk4 Amalia Wallace, LEATHER BELT MAKER LEATHER BELT MAKER jlf Evert Patel, Reg Reg pm4 Corrections: (The following items were deleted from the chart) 12:42 10:41 Presenting complaint: EMS states: ambulance arrival of pt who has been mk4 hallucinating per staff and states he is not safe mk4 12:43 11:00 Reassessment: Patient appears in no apparent distress at this time. Patient mk4 denies pain at this time. mk4 Chart Complete MTDD
--- NOTE | 2016-11-11 10:39 | EDDOCDS ---
[facility] Name: Lake Nguyen Age: 26 yrs Sex: Male : 1990 Arrival Date: 11/04/2016 Time: 09:53 Bed [facility] Private MD: Disposition: 11/04/16 12:56 Discharged to Home/Self Care. Impression: Major depressive disorder, recurrent, mild. - Condition is Stable. - Discharge Instructions: Depression, Adult. - Medication Reconciliation, Local Pharmacy Hours form. - Follow up: [facility]; When: Today. - Problem is chronic. - Symptoms are unchanged. Historical: - Allergies: BACITRACIN; SULFA (SULFONAMIDES); - Home Meds: 1. Adderall XR 30 mg oral cp24 1 cap once daily (Last dose: 11/03/2016 08:00) 2. Advair Diskus 100-50 mcg/dose Inhl dsdv 1 puff 2 times per day (Last dose: 11/03/2016 08:00) 3. Lexapro 10 mg Oral tab once daily (Last dose: 11/03/2016 08:00) 4. Vitamin D Oral 50,000 unit weekly (Last dose: 10/30/2016) 5. albuterol sulfate 90 mcg/actuation Inhl aepb as needed - PMHx: Anxiety; Asthma; - PSHx: none; - Social history: Smoking status: Patient states was never smoker of tobacco. No barriers to communication noted, The patient speaks fluent Indonesian. - Family history: Not pertinent. - : The pt / caregiver states he / she is not on anticoagulants. Home medication list is obtained from the patient. - Exposure Risk Screening:: None identified. Vital Signs: 11/04 10:06 BP 132 / 88; Pulse 88; Resp 18; Temp 98; Pulse Ox 98% on R/A; Weight 70.31 kg / 155.01 mk4 lbs; Height 5 ft. 4 in. (162.56 cm); 10:06 Body Mass Index 26.61 (70.31 kg, 162.56 cm) mk4 MDM: 09:56 Consult PFS/PSA/Sub Plant Manager ordered. sd1 09:56 Consult PFS/PSA/Sub Plant Manager: Patient's case requires discussion with on-call sd1 Psychiatrist ordered. 09:56 PSA/PFS to call Nursing Certified Hyperbaric Technologist, to enter [place] data [place] if patient sd1 involuntarily admitted or transferred for SI or HI ordered. 09:56 Confirm accurate psychiatric medication list and times of last dosage ordered. sd1 09:56 Detain Pt Until Medically/PFS Cleared ordered. sd1 09:57 Acetaminophen Level Ordered. EDMS 09:57 Basic Metabolic Profile Ordered. EDMS 09:57 Complete Blood Count Ordered. EDMS 09:57 Drug Eval Toxicology ED Only Ordered. EDMS 09:57 Ethyl Alcohol (ethanol) Ordered. EDMS 09:57 Liver Profile Ordered. EDMS 09:57 Salicylate Level Ordered. EDMS 09:57 Thyroid Stimulating Hormone Ordered. EDMS 10:42 Consult PFS/PSA/Sub Plant Manager complete. mk4 10:42 Consult PFS/PSA/Sub Plant Manager: Patient's case requires discussion with on-call 4 Psychiatrist complete. 10:43 PSA/PFS to call Nursing Certified Hyperbaric Technologist, to enter [place] data [place] if patient mk4 involuntarily admitted or transferred for SI or HI complete. 11:20 REGULAR DIET PLASTIC GEORGE+DIET ordered. EDMS 11:59 Financial registration complete. pm4 11:59 [facility] Payment Agreement was scanned into Bloc and attached to record. pm4 12:14 Acetaminophen Level Reviewed. sd1 12:14 Salicylate Level Reviewed. sd1 12:14 Basic Metabolic Profile Reviewed. sd1 12:14 Complete Blood Count Reviewed. sd1 12:14 Drug Eval Toxicology ED Only Reviewed. sd1 12:14 Ethyl Alcohol (ethanol) Reviewed. sd1 12:14 Liver Profile Reviewed. sd1 12:14 Thyroid Stimulating Hormone Reviewed. sd1 13:06 PSA Outpatient Referrals was scanned into Bloc and attached to record. ml4 14:30 PCR was scanned into Bloc and attached to record. gb Signatures: Dispatcher MedHost EDMS Desi Smith MD MD sd1 Irina Walls, Reg Reg gb Sheba Booker, PSA PSA ml4 Erika Lind RN RN mk4 Evert Patel, Reg Reg pm4 The chart was reviewed and I authenticate all verbal orders and agree with the evaluation and treatment provided.Attachments: 11:59 [facility] Payment Agreement pm4 Chart Complete MTDD
== END 2016-11-04 13:25 | disposition home or self-care (01) ==
LOC: M ED 09:53
DX: F32.9 Major depressive disorder, single episode, unspecified (principal); H53.2 Diplopia; F41.9 Anxiety disorder, unspecified; J45.909 Unspecified asthma, uncomplicated; Z79.899 Other long term (current) drug therapy; Z79.51 Long term (current) use of inhaled steroids; Z88.2 Allergy status to sulfonamides; Z88.3 Allergy status to other anti-infective agents
CPT/HCPCS: 80048; 80076; 80306; 84443; 85027; 99284; G0480

== ENCOUNTER → 2017-02-11 | Outpatient (CLI) | payer OTHER | LOC: M SLEEP 19:28 | PROVIDERS: ATTEND Nurse Practitioner Adult Health | DX: G47.30 Sleep apnea, unspecified (principal) ==

== ENCOUNTER 2017-08-23 12:41 | Emergency (ER) | payer OTHER ==
[~2017-08-23] VITALS: Ht 162.6 cm; Wt 70.9 kg
[2017-08-23] MEDS ORDERED: ABIL1TAB13 PO (12:50)
[2017-08-23] MEDS ORDERED: FLUO10CA8 PO (12:50)
[2017-08-23] MEDS ORDERED: ADDE30CA3 PO (12:50)
[2017-08-23 15:01] LABS: BASO # 0.1 10^3/uL (0.0-0.2); EOS # 0.2 10^3/uL (0.0-0.50); EOS % 1.9 % (0.0-3.0); IMMATURE GRANULOCYTE % 0.4 % (0-0); LYMPH % 33.7 % (24.0-44.0); MEAN CORPUSCULAR HEMOGLOBIN 30.1 pg (27.0-33.0); MEAN CORPUSCULAR VOLUME 88.6 fl (80.0-96.0); MONO # 0.7 10^3/uL (0.0-0.8); MONO % 8.3 % (0.0-5.0); NEUTROPHILS # 4.9 10^3/uL (1.8-7.7); NEUTROPHILS % 54.7 % (36.0-66.0); PLATELET COUNT, AUTOMATED 283 10^3/uL (150-450); RED CELL DISTRIBUTION WIDTH 11.9 % (11.5-14.5)
[2017-08-23 15:19] LABS: ALBUMIN 4.3 GM/DL (3.2-5.2); ALBUMIN/GLOBULIN RATIO 1.16 (1.00-1.93); ALKALINE PHOSPHATASE 85 U/L (45-117); ALT/SGPT 55 U/L (12-78); ANION GAP 6 MEQ/L (8-16); AST/SGOT 19 U/L (15-37); BILIRUBIN,DIRECT < 0.1 MG/DL (0.0-0.2); BILIRUBIN,TOTAL 0.2 MG/DL (0.2-1.0); BLOOD UREA NITROGEN 16 MG/DL (7-18); CARBON DIOXIDE LEVEL 30 MEQ/L (21-32); CHLORIDE LEVEL 104 MEQ/L (98-107); CREATININE FOR GFR 1.06 MG/DL (0.70-1.30); GLOMERULAR FILTRATION RATE > 60.0 (>60); GLUCOSE, FASTING 80 MG/DL (70-105); SODIUM LEVEL 140 MEQ/L (136-145)
[2017-08-23 17:29] VITALS: BP 106/68
--- NOTE | 2017-08-23 21:15 | ECGEPIP ---
Stationary ECG Study [facility] - ED Test Date: 2017-08-23 Pat Name: JEREMI BRANTLEY Department: Room: - Gender: M [facility] Recruiting Coordinator: myra : 1990 Requested By: TEODORO RACHEL PA-C Order Number: [id number] Reading MD: Desi Smith Measurements Intervals [place] Rate: 58 P: 28 WV: 170 QRS: 37 QRSD: 88 T: 43 QT: 405 QTc: 400 Interpretive Statements SINUS BRADYCARDIA EARLY REPOLARIZATION, CLINICAL CORRELATION - EXCLUDE ISCHEMIA, PERICARDITIS NO PRIOR FOR COMPARISON Electronically Signed On 08-23-2017 21:15:03 EDT by Desi Smith
[2017-09-06] MEDS ORDERED: ROPI0.5T PO (10:13)
== END 2017-08-23 17:34 | disposition home or self-care (01) ==
LOC: M ED 12:41
DX: T88.7XXA Unspecified adverse effect of drug or medicament, initial encounter (principal); Y92.099 Unspecified place in other non-institutional residence as the place of occurrence of the external cause; Y93.89 Activity, other specified; Y99.9 Unspecified external cause status

== ENCOUNTER → 2017-09-22 | Outpatient (CLI) | payer OTHER ==
[~2017-09-22] MED LIST: ABIL1TAB13 PO; ADDE30CA3 PO; FLUO10CA8 PO; PROHANCE 279.3MG/ML 15ML VIAL (A9576) As Ordered ONE; ROPI0.5T PO
--- NOTE | 2017-09-22 13:52 | REP ---
MRI BRAIN WITHOUT FOLLOWED BY WITH CONTRAST: HISTORY: Memory loss. Question seizure. Comparison MRI study is from September 08, 2017. Comparison brain CT is from September 06, 2017. GADOLINIUM ENHANCEMENT DOSE: 14 mL of intravenous ProHance. FINDINGS: Today's study again demonstrates a small simple-appearing pineal cyst. This is unchanged from the recent prior study measuring 9 mm in greatest anteroposterior span. There is no abnormal gadolinium enhancement associated with this. No other abnormal intracranial gadolinium enhancement is seen. No bony calvarial lesion is seen. Craniocervical junction is normal. There is no MR evidence of significant paranasal sinus disease. No intraorbital abnormality is seen. Lateral, third, and fourth ventricles are normal in size and position. The previously noted punctate focus of increased signal in the left temporal lobe is unchanged. IMPRESSION: 9 mm simple-appearing pineal cyst. No other significant intracranial lesion. No abnormal gadolinium enhancement. Signed by Robert Casey MD 09/22/2017 04:31 P
== END ==
LOC: M RAD 09-20 15:03
PROVIDERS: ATTEND Psychiatry & Neurology Psychiatry
DX: C75.3 Malignant neoplasm of pineal gland (principal)
CPT/HCPCS: 70553; A9576